=== PATIENT | male | born 1950 | race Caucasian/White ===

== ENCOUNTER 2017-01-05 23:05 | Outpatient (CLI) | payer SELFPAY | END 2017-01-05 23:59 | disposition EMS.NT | DX: R04.0 Epistaxis (principal) ==

== ENCOUNTER 2020-08-28 11:08 | Outpatient (CLI) | payer MEDICARE, OTHER | END 2020-08-28 11:09 | disposition home or self-care (01) | LOC: COV 11:08 | PROVIDERS: ATTEND Family Medicine | DX: Z20.828 Contact with and (suspected) exposure to other viral communicable diseases (principal) ==

== ENCOUNTER 2021-09-21 08:00 | Outpatient (CLI) | payer MEDICARE, OTHER | END 2021-09-21 23:59 | LOC: LAB.S 08:00 | PROVIDERS: ATTEND Emergency Medicine | DX: J06.9 Acute upper respiratory infection, unspecified (principal); Z20.822 Contact with and (suspected) exposure to COVID-19 ==